=== PATIENT | female | born 1960 | race Caucasian/White ===

== ENCOUNTER → 2016-08-27 | Outpatient (CLI) | payer OTHER | LOC: FIMAGING 15:41 | DX: Z12.31 Encounter for screening mammogram for malignant neoplasm of breast (principal) | CPT/HCPCS: G0202 ==

== ENCOUNTER → 2016-09-04 | Outpatient (CLI) | payer OTHER | LOC: FIMAGING 13:19 | PROVIDERS: ATTEND Registered Nurse | DX: N60.01 Solitary cyst of right breast (principal) ==

== ENCOUNTER → 2016-12-16 | Outpatient (CLI) | payer OTHER | LOC: FIMAGING 14:18 | PROVIDERS: ATTEND Registered Nurse | DX: D25.0 Submucous leiomyoma of uterus (principal) ==

== ENCOUNTER → 2017-07-21 | Outpatient (CLI) | payer OTHER | LOC: FIMAGING 13:30 | PROVIDERS: ATTEND Registered Nurse | DX: N63.11 Unspecified lump in the right breast, upper outer quadrant (principal) ==

== ENCOUNTER → 2018-07-22 | Outpatient (CLI) | payer OTHER | LOC: FIMAGING 12:18 | PROVIDERS: ATTEND Registered Nurse | DX: Z12.31 Encounter for screening mammogram for malignant neoplasm of breast (principal) ==